=== PATIENT | male | born 1990 | race Caucasian/White ===

== ENCOUNTER 2017-07-16 18:37 | Emergency (ER) | payer OTHER ==
[~2017-07-16] VITALS: Ht 177.8 cm; Wt 89.8 kg
[~2017-07-16 18:37] MED LIST: ALBUTEROL0.09 MG/A1 INH; METHADONE HC10 MG/M1 PO; PROAIR HFA0.09 MG/Ac INH; ZOFRAN ODT4 MG SL
[2017-07-16 19:11] VITALS: BP 121/78
== END 2017-07-16 21:53 | disposition admitted as inpatient to this hospital (09) ==
LOC: ERH 18:37
DX: R10.9 Unspecified abdominal pain (principal)